=== PATIENT | female | born 1975 | race Caucasian/White ===

== ENCOUNTER 2018-04-11 22:59 | Emergency (ER) | payer MEDICAID ==
[2018-04-12 01:22] VITALS: BP 133/83
== END 2018-04-12 01:22 | disposition home or self-care (01) ==
LOC: ED 22:59
DX: N39.0 Urinary tract infection, site not specified (principal); Z90.49 Acquired absence of other specified parts of digestive tract

== ENCOUNTER 2018-04-16 19:12 | Emergency (ER) | payer MEDICAID ==
[~2018-04-16] VITALS: Ht 149.9 cm; Wt 80.0 kg
[2018-04-16 19:17] VITALS: Ht 149.9 cm; Wt 80.0 kg
[2018-04-16 20:41] VITALS: BP 125/77
== END 2018-04-16 20:41 | disposition home or self-care (01) ==
LOC: ED 19:12
DX: M77.8 Other enthesopathies, not elsewhere classified (principal); Z90.49 Acquired absence of other specified parts of digestive tract

== ENCOUNTER 2019-06-20 18:31 | Emergency (ER) | payer MEDICAID ==
[~2019-06-20] VITALS: Ht 149.9 cm; Wt 79.8 kg
[2019-06-20 18:52] VITALS: Ht 149.9 cm; Wt 79.8 kg
[2019-06-20 19:26] LABS: BASOPHIL % 1.3 % (0-2); PLATELET COUNT 396 x10^3mcL (130-400); RED CELL DISTRIBUTION WIDTH 14.8 % (11.5-14.5)
[2019-06-20 19:41] LABS: UA SPECIFIC GRAVITY 1.015 (1.005-1.035); microscopic required? YES; urine erythrocyte 3+ (NEGATIVE)
[2019-06-20 22:16] VITALS: BP 117/81
== END 2019-06-20 22:16 | disposition home or self-care (01) ==
LOC: ED 18:31
PROVIDERS: Emergency Medicine
DX: D25.9 Leiomyoma of uterus, unspecified (principal); N39.3 Stress incontinence (female) (male); Z90.49 Acquired absence of other specified parts of digestive tract
CPT/HCPCS: 36415